=== PATIENT | male | born 1960 | race Caucasian/White ===

== ENCOUNTER 2016-05-21 02:22 | Emergency (ER) | payer MEDICAID ==
[~2016-05-21] VITALS: Ht 172.7 cm; Wt 77.3 kg
[2016-05-21 03:52] VITALS: BP 157/74
[2016-05-21] MEDS ORDERED: HYDROmorphone 2 MG/ML SYRINGE IM ONE (04:15)
[2016-05-21] MEDS ORDERED: ONDANSETRON HCL 4 MG/2 ML VIAL IM ONE (04:15)
== END 2016-05-21 04:35 | disposition home or self-care (01) ==
LOC: EMS 02:25
DX: T87.9 Unspecified complications of amputation stump (principal); I10 Essential (primary) hypertension; E11.9 Type 2 diabetes mellitus without complications; F17.210 Nicotine dependence, cigarettes, uncomplicated; F11.90 Opioid use, unspecified, uncomplicated
CPT/HCPCS: 96372; 99284; J1170; J2405

== ENCOUNTER 2016-05-21 08:37 | Emergency (ER) | payer MEDICAID ==
[~2016-05-21] VITALS: Ht 172.7 cm; Wt 81.8 kg
[2016-05-21 09:10] VITALS: BP 114/73
[2016-05-21 09:11] LABS: GLUCOSE,POINT OF CARE 144 MG/DL (70-110)
== END 2016-05-21 09:49 | disposition home or self-care (01) ==
LOC: EMS 08:40
DX: Z76.5 Malingerer [conscious simulation] (principal); R07.9 Chest pain, unspecified
CPT/HCPCS: 82962; 93005; 99283

== ENCOUNTER 2016-12-29 14:20 | Emergency (ER) | payer OTHER ==
[~2016-12-29] VITALS: Ht 172.7 cm; Wt 88.6 kg
[~2016-12-29 14:20] MED LIST: ALPR0.5T8 PO; ASPI-1093 PO; DSS100 PO; DULO60CA44 PO; FERR-89 PO; GLIM2 PO; METF500T4 PO; METO25 PO; OXYC10IR PO
[2016-12-29] MEDS ORDERED: ONDANSETRON HCL 4 MG/2 ML VIAL IVP ONE ×2 (14:45→21:30)
[2016-12-29 14:48] LABS: GLUCOSE,POINT OF CARE 267 MG/DL (70-110)
[2016-12-29] MEDS ORDERED: HYDROCODONE/ACETAMINOPHEN 5-325 MG TABLET PO ONE ×2 (15:00→16:30)
[2016-12-29] MEDS ORDERED: DSS100 PO (15:02)
[2016-12-29 15:15] LABS: BASOPHILS % (AUTO) 0.2 % (0.0-2.0); EOSINOPHILS % (AUTO) 1.5 % (1.0-6.0); HEMATOCRIT 28.8 % (41-53); HEMOGLOBIN 9.7 g/dL (13.5-17.5); LYMPHOCYTES # (AUTO) 4.2 K/uL (1.0-4.8); LYMPHOCYTES % (AUTO) 29.5 % (22.0-44.0); MEAN CORPUSCULAR HEMOGLOBIN 28.7 pg (26.0-34.0); MEAN CORPUSCULAR HGB CONC 33.6 G/dL (31.0-37.0); MEAN CORPUSCULAR VOLUME 85 fL (80-100); MONOCYTES # (AUTO) 1.1 K/uL (0.1-1.0); NEUTROPHILS # (AUTO) 8.7 K/uL (1.8-7.7); NEUTROPHILS % (AUTO) 60.8 % (40.0-70.0); PLATELET COUNT (AUTO) 444 K/uL (150-450); RED BLOOD CELL COUNT(AUTO) 3.37 MIL/uL (4.50-5.90); RED CELL DISTRIBUTION WIDTH 16.1 % (11.5-14.5); WHITE BLOOD COUNT (AUTO) 14.3 K/uL (4.5-11.0)
[2016-12-29 15:24] LABS: ANION GAP 12 mmol/L (8-16); CALCIUM, TOTAL 8.8 mg/dL (8.8-10.5); CARBON DIOXIDE 19 mmol/L (22-29); CHLORIDE 99 mmol/L (98-107); CREATININE 0.94 mg/dL (0.60-1.30); GLOMERULAR FILTR. RATE CALC > 60 mL/min (>60); POTASSIUM 4.4 mmol/L (3.5-5.1); SODIUM SERUM 130 mmol/L (136-145); UREA NITROGEN, BLOOD 15 mg/dL (7-18)
[2016-12-29 15:31] LABS: ALANINE AMINOTRANSFERASE 19 U/L (12-78); ALBUMIN 3.1 g/dL (3.4-5.0); ASPARTATE AMINOTRANSFERASE 14 U/L (15-37); BILIRUBIN,TOTAL 0.2 mg/dL (0.1-1.0); TOTAL PROTEIN, SERUM 6.7 g/dL (6.4-8.2)
[2016-12-29 16:15] LABS: APPEARANCE,URINE CLEAR (CLEAR); GLUCOSE, URINE (UA) >=1000 mg/dL (NEGATIVE); KETONES,URINE NEGATIVE (NEGATIVE); LEUKOCYTE ESTERASE ,URINE NEGATIVE (NEGATIVE); OCCULT BLOOD,URINE NEGATIVE (NEGATIVE); PH,URINE 6.5 (5.0-8.0); PROTEIN,URINE NEGATIVE (NEGATIVE)
[2016-12-29 16:25] LABS: RBC,URINE None Seen /HPF (0-2); WBC,URINE 0-2 /HPF (0-5)
[2016-12-29] MEDS ORDERED: GADOBUTROL 1 MMOL/ML 10 ML VIAL IVP ONE (19:06)
[2016-12-29] MEDS ORDERED: LORazepam 2 MG/ML VIAL IVP ONE (19:30)
[2016-12-29] MEDS ORDERED: MORPHINE SULFATE 4 MG/ML SYRINGE IVP ONE (22:30)
[2016-12-29 23:23] VITALS: BP 117/64
== END 2016-12-30 00:15 | disposition home or self-care (01) ==
LOC: EMS 14:23
DX: R53.1 Weakness (principal); M51.36 Other intervertebral disc degeneration, lumbar region; M48.06 Spinal stenosis, lumbar region; E11.9 Type 2 diabetes mellitus without complications; I10 Essential (primary) hypertension; R06.02 Shortness of breath; F17.200 Nicotine dependence, unspecified, uncomplicated; F15.10 Other stimulant abuse, uncomplicated; F11.10 Opioid abuse, uncomplicated; Z79.82 Long term (current) use of aspirin; Z82.49 Family history of ischemic heart disease and other diseases of the circulatory system; Z89.511 Acquired absence of right leg below knee; Z79.899 Other long term (current) drug therapy
CPT/HCPCS: 36415; 71010; 72100; 72158; 80053; 80178; 80307; 81001; 82962; 83690; 83880; 84484; 85025; 93005; 96374; 96375; 96376; 99285; A9585; G0480; J2060; J2270; J2405

== ENCOUNTER 2016-12-31 10:24 | Inpatient (IN) | payer OTHER ==
[~2016-12-31] VITALS: Ht 172.7 cm; Wt 82.3 kg
[~2016-12-31 10:24] MED LIST changes: -ASPI-1093 PO; +ASPI-1182 PO; +VANCOMYCIN HCL 1.5 GM in DEXTROSE 5%-WATER 250 ML IV SCH
[2016-12-31] MEDS ORDERED: 0.9% SODIUM CHLORIDE 10 ML SYRINGE IVP PRN ×2 (11:30→14:30)
[2016-12-31] MEDS ORDERED: PIPERACILLIN/TAZO 3.375 GM/D5W 50 ML IV ONE (11:45)
[2016-12-31] MEDS ORDERED: HYDROmorphone 2 MG/ML SYRINGE IVP ONE (11:45)
[2016-12-31] MEDS ORDERED: ONDANSETRON HCL 4 MG/2 ML VIAL IVP ONE (11:45)
[2016-12-31] MEDS ORDERED: VANCOMYCIN HCL 1 GM/D5% WATER 200 ML IV ONE ×2 (11:45→18:00)
[2016-12-31 12:10] LABS: APPEARANCE,URINE CLEAR (CLEAR); GLUCOSE, URINE (UA) >=1000 mg/dL (NEGATIVE); KETONES,URINE NEGATIVE (NEGATIVE); LEUKOCYTE ESTERASE ,URINE NEGATIVE (NEGATIVE); OCCULT BLOOD,URINE NEGATIVE (NEGATIVE); PROTEIN,URINE NEGATIVE (NEGATIVE)
[2016-12-31 12:11] LABS: ADD UA MICROSCOPIC YES
[2016-12-31 12:28] LABS: RBC,URINE 0-2 /HPF (0-2); SQUAMOUS EPITHELIAL CELL,UR Few /LPF (None Seen); WBC,URINE None Seen /HPF (0-5)
[2016-12-31 12:39] LABS: BASOPHILS % (AUTO) 0.5 % (0.0-2.0); HEMOGLOBIN 9.4 g/dL (13.5-17.5); LYMPHOCYTES # (AUTO) 3.1 K/uL (1.0-4.8); LYMPHOCYTES % (AUTO) 29.3 % (22.0-44.0); MEAN CORPUSCULAR HGB CONC 33.6 G/dL (31.0-37.0); MEAN CORPUSCULAR VOLUME 86 fL (80-100); MONOCYTES # (AUTO) 0.9 K/uL (0.1-1.0); MONOCYTES % (AUTO) 8.1 % (2.0-9.0); NEUTROPHILS # (AUTO) 6.4 K/uL (1.8-7.7); NEUTROPHILS % (AUTO) 60.1 % (40.0-70.0); PLATELET COUNT (AUTO) 567 K/uL (150-450); RED BLOOD CELL COUNT(AUTO) 3.25 MIL/uL (4.50-5.90); RED CELL DISTRIBUTION WIDTH 16.3 % (11.5-14.5); WHITE BLOOD COUNT (AUTO) 10.7 K/uL (4.5-11.0)
[2016-12-31 12:50] LABS: ANION GAP 11 mmol/L (8-16); CALCIUM, TOTAL 8.8 mg/dL (8.8-10.5); CARBON DIOXIDE 22 mmol/L (22-29); CHLORIDE 99 mmol/L (98-107); CREATININE 1.04 mg/dL (0.60-1.30); GLOMERULAR FILTR. RATE CALC > 60 mL/min (>60); POTASSIUM 4.1 mmol/L (3.5-5.1); SODIUM SERUM 132 mmol/L (136-145); UREA NITROGEN, BLOOD 10 mg/dL (7-18)
[2016-12-31 12:52] LABS: INR 0.9 (0.9-1.1); PROTHROMBIN TIME 9.8 SEC (9.4-11.6)
[2016-12-31 12:57] LABS: ALBUMIN 3.2 g/dL (3.4-5.0); ASPARTATE AMINOTRANSFERASE 10 U/L (15-37); BILIRUBIN,TOTAL 0.2 mg/dL (0.1-1.0); TOTAL PROTEIN, SERUM 6.8 g/dL (6.4-8.2)
[2016-12-31 12:59] LABS: LACTIC ACID 1.9 mmol/L (0.4-2.0)
[2016-12-31 13:09] LABS: ALANINE AMINOTRANSFERASE 19 U/L (12-78)
[2016-12-31 13:42] LABS: PROCALCITONIN (PCT) < 0.05 ng/mL (<0.50)
[2016-12-31 13:50] LABS: ERYTHROCYTE SEDIMENTATION RATE 68 MM/HR (0-15)
[2016-12-31] MEDS ORDERED: ACETAMINOPHEN 325 MG TABLET PO PRN ×2 (14:30→15:00)
[2016-12-31] MEDS ORDERED: ONDANSETRON HCL 4 MG/2 ML VIAL IVP PRN (14:30)
[2016-12-31] MEDS ORDERED: BISACODYL 10 MG RECTAL RECTAL SUPPOSITORY PR PRN (15:00)
[2016-12-31] MEDS ORDERED: MORPHINE SULFATE 2 MG/ML SYRINGE IVP PRN (15:00)
[2016-12-31 15:33] VITALS: BP 122/75
[2016-12-31] MEDS: HEPARIN SODIUM,PORCINE 5,000 UNITS/ML VIAL SQ SCH ×2 (16:34→23:13)
[2016-12-31] MEDS: HYDROmorphone 2 MG/ML SYRINGE IVP PRN ×2 (16:36→23:14)
[2016-12-31] MEDS: MetFORMIN HCL 500 MG TABLET PO SCH (18:01)
[2016-12-31] MEDS: OxyCODONE HCL 10 MG IR TABLET PO PRN (19:55)
[2016-12-31] MEDS: FERROUS SULFATE 325 MG EC TABLET PO SCH (19:55)
[2016-12-31] MEDS: DOCUSATE SODIUM 100 MG CAPSULE PO SCH (19:56)
[2016-12-31 20:18] VITALS: BP 131/70
[2016-12-31] MEDS: METOPROLOL TARTRATE 25 MG TABLET PO SCH (21:04)
[2016-12-31] MEDS: HYPROMELLOSE 0.5% 15 ML OPHTHALMIC SOLUTION OU SCH (23:35)
[2016-12-31 23:44] VITALS: BP 102/64
[2017-01-01] MEDS ORDERED: VANCOMYCIN HCL 1 GM/D5% WATER 200 ML IV ONE
[2017-01-01 00:23] LABS: GLUCOSE COMMENT 1 Received Meds; GLUCOSE,POINT OF CARE 190 MG/DL (70-110)
[2017-01-01] MEDS: ZOLPIDEM TARTRATE 5 MG TABLET PO PRN (01:17)
[2017-01-01 05:19] VITALS: BP 116/60
[2017-01-01] MEDS: HYDROmorphone 2 MG/ML SYRINGE IVP PRN ×3 (06:14→19:23)
[2017-01-01 06:24] LABS: BASOPHILS % (AUTO) 0.4 % (0.0-2.0); EOSINOPHILS % (AUTO) 1.9 % (1.0-6.0); HEMATOCRIT 25.4 % (41-53); HEMOGLOBIN 8.5 g/dL (13.5-17.5); LYMPHOCYTES # (AUTO) 4.7 K/uL (1.0-4.8); LYMPHOCYTES % (AUTO) 36.3 % (22.0-44.0); MEAN CORPUSCULAR HEMOGLOBIN 29.1 pg (26.0-34.0); MEAN CORPUSCULAR HGB CONC 33.6 G/dL (31.0-37.0); MEAN CORPUSCULAR VOLUME 87 fL (80-100); MONOCYTES # (AUTO) 1.1 K/uL (0.1-1.0); MONOCYTES % (AUTO) 8.6 % (2.0-9.0); NEUTROPHILS # (AUTO) 6.9 K/uL (1.8-7.7); NEUTROPHILS % (AUTO) 52.8 % (40.0-70.0); PLATELET COUNT (AUTO) 552 K/uL (150-450); RED BLOOD CELL COUNT(AUTO) 2.93 MIL/uL (4.50-5.90); RED CELL DISTRIBUTION WIDTH 15.7 % (11.5-14.5)
[2017-01-01 07:28] LABS: ALANINE AMINOTRANSFERASE 17 U/L (12-78); ALBUMIN 2.7 g/dL (3.4-5.0); ANION GAP 10 mmol/L (8-16); ASPARTATE AMINOTRANSFERASE 10 U/L (15-37); BILIRUBIN,TOTAL 0.1 mg/dL (0.1-1.0); CALCIUM, TOTAL 8.2 mg/dL (8.8-10.5); CARBON DIOXIDE 20 mmol/L (22-29); CHLORIDE 101 mmol/L (98-107); CREATININE 0.86 mg/dL (0.60-1.30); GLOMERULAR FILTR. RATE CALC > 60 mL/min (>60); SODIUM SERUM 131 mmol/L (136-145); UREA NITROGEN, BLOOD 9 mg/dL (7-18)
[2017-01-01 07:32] VITALS: BP 105/57
[2017-01-01] MEDS ORDERED: VANCOMYCIN HCL 1.5 GM in DEXTROSE 5%-WATER 250 ML IV SCH (08:00)
[2017-01-01] MEDS: HEPARIN SODIUM,PORCINE 5,000 UNITS/ML VIAL SQ SCH ×3 (08:26→23:48)
[2017-01-01] MEDS: PANTOPRAZOLE SODIUM 40 MG DR TABLET PO SCH (08:27)
[2017-01-01] MEDS: GLIMEPIRIDE 2 MG TABLET PO SCH (08:27)
[2017-01-01] MEDS: DULoxetine HCL 60 MG CAPSULE PO SCH (08:27)
[2017-01-01] MEDS: DOCUSATE SODIUM 100 MG CAPSULE PO SCH ×2 (08:27→19:23)
[2017-01-01] MEDS: METOPROLOL TARTRATE 25 MG TABLET PO SCH ×2 (08:27→19:23)
[2017-01-01] MEDS: ASPIRIN 81 MG EC TABLET PO SCH (08:27)
[2017-01-01] MEDS: FERROUS SULFATE 325 MG EC TABLET PO SCH ×2 (08:27→19:23)
[2017-01-01] MEDS: HYPROMELLOSE 0.5% 15 ML OPHTHALMIC SOLUTION OU SCH ×2 (08:27→19:23)
[2017-01-01] MEDS: MetFORMIN HCL 500 MG TABLET PO SCH ×2 (08:28→17:17)
[2017-01-01] MEDS: HYDROCODONE/ACETAMINOPHEN 5-325 MG TABLET PO PRN ×2 (08:33→17:16)
[2017-01-01 11:22] VITALS: BP 123/70
[2017-01-01] MEDS: OxyCODONE HCL 10 MG IR TABLET PO PRN ×2 (11:24→23:48)
[2017-01-01 15:25] VITALS: BP 122/72
[2017-01-01 19:15] VITALS: BP 127/76
[2017-01-01] MEDS: ONDANSETRON HCL 4 MG/2 ML VIAL IVP PRN (20:11)
[2017-01-01] MEDS: ALPRAZolam 0.5 MG TABLET PO PRN (21:20)
[2017-01-01 23:36] VITALS: BP 110/75
[2017-01-02] VITALS (7 sets, daily range): BP systolic 95–125; BP diastolic 52–76
[2017-01-02] MEDS: HYDROmorphone 2 MG/ML SYRINGE IVP PRN ×4 (01:14→19:32)
[2017-01-02] MEDS: ZOLPIDEM TARTRATE 5 MG TABLET PO PRN (01:56)
[2017-01-02] MEDS: HEPARIN SODIUM,PORCINE 5,000 UNITS/ML VIAL SQ SCH ×2 (08:00→15:59)
[2017-01-02] MEDS: ALPRAZolam 0.5 MG TABLET PO PRN ×2 (10:55→22:14)
[2017-01-02] MEDS ORDERED: FentaNYL CITRATE-PF 100 MCG/2 ML VIAL ONE (11:40)
[2017-01-02] MEDS ORDERED: MIDAZOLAM HCL 2 MG/2 ML VIAL ONE (11:40)
[2017-01-02] MEDS ORDERED: MIDAZOLAM HCL 2 MG/2 ML VIAL IVP ONE (12:32)
[2017-01-02] MEDS ORDERED: FentaNYL CITRATE-PF 100 MCG/2 ML VIAL IVP ONE (12:36)
[2017-01-02] MEDS: MetFORMIN HCL 500 MG TABLET PO SCH ×2 (13:40→17:56)
[2017-01-02] MEDS: METOPROLOL TARTRATE 25 MG TABLET PO SCH ×2 (13:40→19:32)
[2017-01-02] MEDS: PANTOPRAZOLE SODIUM 40 MG DR TABLET PO SCH (13:40)
[2017-01-02] MEDS: GLIMEPIRIDE 2 MG TABLET PO SCH (13:40)
[2017-01-02] MEDS: HYPROMELLOSE 0.5% 15 ML OPHTHALMIC SOLUTION OU SCH ×2 (13:41→19:32)
[2017-01-02] MEDS: DOCUSATE SODIUM 100 MG CAPSULE PO SCH ×2 (13:41→19:32)
[2017-01-02] MEDS: ASPIRIN 81 MG EC TABLET PO SCH (13:41)
[2017-01-02] MEDS: DULoxetine HCL 60 MG CAPSULE PO SCH (13:41)
[2017-01-02] MEDS: FERROUS SULFATE 325 MG EC TABLET PO SCH ×2 (13:41→19:32)
[2017-01-02] MEDS: HYDROCODONE/ACETAMINOPHEN 5-325 MG TABLET PO PRN (16:07)
[2017-01-03] MEDS: OxyCODONE HCL 10 MG IR TABLET PO PRN (00:09)
[2017-01-03] MEDS: HEPARIN SODIUM,PORCINE 5,000 UNITS/ML VIAL SQ SCH ×4 (01:46→23:15)
[2017-01-03] MEDS: HYDROmorphone 2 MG/ML SYRINGE IVP PRN ×4 (01:46→21:06)
[2017-01-03] MEDS: ZOLPIDEM TARTRATE 5 MG TABLET PO PRN (02:33)
[2017-01-03 05:07] VITALS: BP 141/74
[2017-01-03 08:03] VITALS: BP 123/71
[2017-01-03] MEDS: PANTOPRAZOLE SODIUM 40 MG DR TABLET PO SCH (08:48)
[2017-01-03] MEDS: FERROUS SULFATE 325 MG EC TABLET PO SCH ×2 (08:49→20:05)
[2017-01-03] MEDS: GLIMEPIRIDE 2 MG TABLET PO SCH (08:49)
[2017-01-03] MEDS: DULoxetine HCL 60 MG CAPSULE PO SCH (08:49)
[2017-01-03] MEDS: METOPROLOL TARTRATE 25 MG TABLET PO SCH ×2 (08:49→20:05)
[2017-01-03] MEDS: MetFORMIN HCL 500 MG TABLET PO SCH ×2 (08:49→17:49)
[2017-01-03] MEDS: DOCUSATE SODIUM 100 MG CAPSULE PO SCH ×2 (08:49→20:05)
[2017-01-03] MEDS: ASPIRIN 81 MG EC TABLET PO SCH (08:49)
[2017-01-03] MEDS: HYPROMELLOSE 0.5% 15 ML OPHTHALMIC SOLUTION OU SCH ×2 (08:50→20:05)
[2017-01-03 12:00] VITALS: BP 112/51
[2017-01-03 15:58] VITALS: BP 133/70
[2017-01-03 19:42] LABS: GLUCOSE COMMENT 1 Received Meds; GLUCOSE,POINT OF CARE 147 MG/DL (70-110)
[2017-01-03 19:44] VITALS: BP 150/81
[2017-01-03] MEDS: ALPRAZolam 0.5 MG TABLET PO PRN (20:19)
[2017-01-03 23:45] VITALS: BP 111/61
[2017-01-04] MEDS: ZOLPIDEM TARTRATE 5 MG TABLET PO PRN (00:31)
[2017-01-04] MEDS: HYDROmorphone 2 MG/ML SYRINGE IVP PRN ×4 (03:07→22:00)
[2017-01-04 03:45] VITALS: BP 112/59
[2017-01-04 07:28] VITALS: BP 130/66
[2017-01-04] MEDS: MetFORMIN HCL 500 MG TABLET PO SCH ×2 (08:00→18:22)
[2017-01-04] MEDS: DULoxetine HCL 60 MG CAPSULE PO SCH (08:00)
[2017-01-04] MEDS: FERROUS SULFATE 325 MG EC TABLET PO SCH ×2 (08:00→20:02)
[2017-01-04] MEDS: GLIMEPIRIDE 2 MG TABLET PO SCH (08:00)
[2017-01-04] MEDS: PANTOPRAZOLE SODIUM 40 MG DR TABLET PO SCH (08:00)
[2017-01-04] MEDS: ASPIRIN 81 MG EC TABLET PO SCH (08:00)
[2017-01-04] MEDS: HEPARIN SODIUM,PORCINE 5,000 UNITS/ML VIAL SQ SCH ×3 (08:00→23:52)
[2017-01-04] MEDS: DOCUSATE SODIUM 100 MG CAPSULE PO SCH ×2 (08:01→20:02)
[2017-01-04] MEDS: HYPROMELLOSE 0.5% 15 ML OPHTHALMIC SOLUTION OU SCH ×2 (08:01→20:03)
[2017-01-04] MEDS: MAGNESIUM HYDROXIDE SUSPENSION 30 ML UDCUP PO PRN ×2 (08:17→09:07)
[2017-01-04] MEDS: METOPROLOL TARTRATE 25 MG TABLET PO SCH ×2 (09:07→20:02)
[2017-01-04 11:04] VITALS: BP 139/85
[2017-01-04] MEDS: ALPRAZolam 0.5 MG TABLET PO PRN (14:34)
[2017-01-04 15:16] VITALS: BP 154/87
[2017-01-04 19:45] VITALS: BP 120/78
[2017-01-04] MEDS: OxyCODONE HCL 10 MG IR TABLET PO PRN (20:02)
[2017-01-05] VITALS (7 sets, daily range): BP systolic 93–115; BP diastolic 51–72
[2017-01-05] MEDS: ZOLPIDEM TARTRATE 5 MG TABLET PO PRN (01:25)
[2017-01-05] MEDS: HYDROmorphone 2 MG/ML SYRINGE IVP PRN ×4 (04:31→23:29)
[2017-01-05] MEDS: PANTOPRAZOLE SODIUM 40 MG DR TABLET PO SCH (08:54)
[2017-01-05] MEDS: DULoxetine HCL 60 MG CAPSULE PO SCH (08:54)
[2017-01-05] MEDS: ASPIRIN 81 MG EC TABLET PO SCH (08:54)
[2017-01-05] MEDS: HEPARIN SODIUM,PORCINE 5,000 UNITS/ML VIAL SQ SCH ×3 (08:54→23:29)
[2017-01-05] MEDS: GLIMEPIRIDE 2 MG TABLET PO SCH (08:54)
[2017-01-05] MEDS: MetFORMIN HCL 500 MG TABLET PO SCH ×2 (08:54→17:26)
[2017-01-05] MEDS: DOCUSATE SODIUM 100 MG CAPSULE PO SCH ×2 (08:54→20:47)
[2017-01-05] MEDS: FERROUS SULFATE 325 MG EC TABLET PO SCH ×2 (08:54→20:47)
[2017-01-05] MEDS: METOPROLOL TARTRATE 25 MG TABLET PO SCH ×2 (08:54→20:47)
[2017-01-05] MEDS: HYPROMELLOSE 0.5% 15 ML OPHTHALMIC SOLUTION OU SCH ×2 (08:59→21:23)
[2017-01-05] MEDS: ONDANSETRON HCL 4 MG/2 ML VIAL IVP PRN ×3 (09:39→22:11)
[2017-01-05] MEDS: OxyCODONE HCL 10 MG IR TABLET PO PRN ×2 (11:01→11:02)
[2017-01-05] MEDS: ALPRAZolam 0.5 MG TABLET PO PRN (20:47)
[2017-01-06] MEDS: ZOLPIDEM TARTRATE 5 MG TABLET PO PRN (00:50)
[2017-01-06 05:21] VITALS: BP 111/70
[2017-01-06] MEDS: HYDROmorphone 2 MG/ML SYRINGE IVP PRN ×4 (05:36→21:21)
[2017-01-06 06:06] LABS: INR 0.9 (0.9-1.1); PROTHROMBIN TIME 9.7 SEC (9.4-11.6)
[2017-01-06 07:26] VITALS: BP 112/64
[2017-01-06] MEDS ORDERED: MIDAZOLAM HCL 2 MG/2 ML VIAL IVP ONE (07:34)
[2017-01-06] MEDS ORDERED: FentaNYL CITRATE-PF 100 MCG/2 ML VIAL IVP ONE (07:34)
[2017-01-06] MEDS: GLIMEPIRIDE 2 MG TABLET PO SCH (08:00)
[2017-01-06] MEDS: MetFORMIN HCL 500 MG TABLET PO SCH ×2 (08:22→17:29)
[2017-01-06] MEDS: PANTOPRAZOLE SODIUM 40 MG DR TABLET PO SCH (08:22)
[2017-01-06] MEDS: HEPARIN SODIUM,PORCINE 5,000 UNITS/ML VIAL SQ SCH ×3 (08:22→23:57)
[2017-01-06] MEDS: METOPROLOL TARTRATE 25 MG TABLET PO SCH ×2 (08:22→20:01)
[2017-01-06] MEDS: DOCUSATE SODIUM 100 MG CAPSULE PO SCH ×2 (08:22→20:01)
[2017-01-06] MEDS: DULoxetine HCL 60 MG CAPSULE PO SCH (08:22)
[2017-01-06] MEDS: ASPIRIN 81 MG EC TABLET PO SCH (08:23)
[2017-01-06] MEDS: FERROUS SULFATE 325 MG EC TABLET PO SCH ×2 (08:23→20:01)
[2017-01-06] MEDS: HYPROMELLOSE 0.5% 15 ML OPHTHALMIC SOLUTION OU SCH ×2 (08:27→21:51)
[2017-01-06] MEDS ORDERED: FentaNYL CITRATE-PF 100 MCG/2 ML VIAL ONE (08:53)
[2017-01-06] MEDS ORDERED: MIDAZOLAM HCL 2 MG/2 ML VIAL ONE (08:53)
[2017-01-06 11:21] VITALS: BP 119/70
[2017-01-06] MEDS ORDERED: SODIUM CHLORIDE 0.9% 1,000 ML IV ONE (12:54)
[2017-01-06] MEDS ORDERED: FentaNYL CITRATE-PF 100 MCG/2 ML VIAL IVP PRN (13:00)
[2017-01-06] MEDS ORDERED: HYDROmorphone 2 MG/ML SYRINGE IVP PRN (13:00)
[2017-01-06 15:45] VITALS: BP 124/65
[2017-01-06] MEDS: HYDROCODONE/ACETAMINOPHEN 5-325 MG TABLET PO PRN (17:52)
[2017-01-06] MEDS: ALPRAZolam 0.5 MG TABLET PO PRN (20:01)
[2017-01-06 20:20] VITALS: BP 129/74
[2017-01-06] MEDS: OxyCODONE HCL 10 MG IR TABLET PO PRN (20:30)
[2017-01-06] MEDS ORDERED: EPHEDrine SULFATE 50 MG/ML VIAL IM ONE (23:22)
[2017-01-06] MEDS ORDERED: PROPOFOL 1% 20 ML VIAL IVP ONE (23:22)
[2017-01-06] MEDS ORDERED: SUCCINYLCHOLINE CHLORIDE 20 MG/ML 10 ML VIAL IVP ONE (23:22)
[2017-01-06] MEDS ORDERED: ROCURONIUM BROMIDE 10 MG/ML 5 ML VIAL IVP ONE (23:22)
[2017-01-06] MEDS ORDERED: LIDOCAINE HCL/PF 2% 5 ML VIAL IM ONE (23:22)
[2017-01-07 00:12] VITALS: BP 106/65
[2017-01-07] MEDS: ZOLPIDEM TARTRATE 5 MG TABLET PO PRN ×2 (02:30→23:50)
[2017-01-07] MEDS: HYDROmorphone 2 MG/ML SYRINGE IVP PRN ×4 (04:12→22:02)
[2017-01-07 04:34] VITALS: BP 109/66
[2017-01-07 07:30] VITALS: BP 121/65
[2017-01-07] MEDS: PANTOPRAZOLE SODIUM 40 MG DR TABLET PO SCH (08:01)
[2017-01-07] MEDS: GLIMEPIRIDE 2 MG TABLET PO SCH (08:01)
[2017-01-07] MEDS: FERROUS SULFATE 325 MG EC TABLET PO SCH ×2 (08:02→20:17)
[2017-01-07] MEDS: MetFORMIN HCL 500 MG TABLET PO SCH ×2 (08:02→17:49)
[2017-01-07] MEDS: ASPIRIN 81 MG EC TABLET PO SCH (08:02)
[2017-01-07] MEDS: DOCUSATE SODIUM 100 MG CAPSULE PO SCH ×2 (08:02→20:17)
[2017-01-07] MEDS: HYDROCODONE/ACETAMINOPHEN 5-325 MG TABLET PO PRN ×2 (08:02→17:49)
[2017-01-07] MEDS: HEPARIN SODIUM,PORCINE 5,000 UNITS/ML VIAL SQ SCH ×3 (08:03→23:47)
[2017-01-07] MEDS: HYPROMELLOSE 0.5% 15 ML OPHTHALMIC SOLUTION OU SCH ×2 (08:05→20:18)
[2017-01-07] MEDS: DULoxetine HCL 60 MG CAPSULE PO SCH (08:06)
[2017-01-07 11:40] VITALS: BP 130/72
[2017-01-07] MEDS: METOPROLOL TARTRATE 25 MG TABLET PO SCH ×2 (12:34→20:17)
[2017-01-07 15:30] VITALS: BP 133/71
[2017-01-07] MEDS: ALPRAZolam 0.5 MG TABLET PO PRN (15:36)
[2017-01-07 19:22] LABS: GLUCOSE,POINT OF CARE 116 MG/DL (70-110)
[2017-01-07 20:08] VITALS: BP 115/67
[2017-01-07] MEDS: OxyCODONE HCL 10 MG IR TABLET PO PRN (20:40)
[2017-01-08] VITALS (7 sets, daily range): BP systolic 100–127; BP diastolic 56–86
[2017-01-08] MEDS: HYDROmorphone 2 MG/ML SYRINGE IVP PRN ×4 (03:59→22:52)
[2017-01-08] MEDS: ASPIRIN 81 MG EC TABLET PO SCH (08:56)
[2017-01-08] MEDS: PANTOPRAZOLE SODIUM 40 MG DR TABLET PO SCH (08:56)
[2017-01-08] MEDS: METOPROLOL TARTRATE 25 MG TABLET PO SCH ×2 (08:56→19:46)
[2017-01-08] MEDS: DOCUSATE SODIUM 100 MG CAPSULE PO SCH ×2 (08:56→19:49)
[2017-01-08] MEDS: FERROUS SULFATE 325 MG EC TABLET PO SCH ×2 (08:57→19:46)
[2017-01-08] MEDS: HEPARIN SODIUM,PORCINE 5,000 UNITS/ML VIAL SQ SCH ×3 (08:57→23:58)
[2017-01-08] MEDS: MetFORMIN HCL 500 MG TABLET PO SCH ×2 (08:57→17:40)
[2017-01-08] MEDS: DULoxetine HCL 60 MG CAPSULE PO SCH (08:57)
[2017-01-08] MEDS: OxyCODONE HCL 10 MG IR TABLET PO PRN ×2 (08:58→15:06)
[2017-01-08] MEDS: GLIMEPIRIDE 2 MG TABLET PO SCH (08:58)
[2017-01-08] MEDS: HYPROMELLOSE 0.5% 15 ML OPHTHALMIC SOLUTION OU SCH ×2 (09:16→23:58)
[2017-01-09] MEDS ORDERED: CefTRIAXone SODIUM 2 GM in DEXTROSE 5%-WATER 50 ML IV SCH ×2 (00:45→08:00)
[2017-01-09] MEDS: ZOLPIDEM TARTRATE 5 MG TABLET PO PRN ×2 (01:17→23:23)
[2017-01-09 04:39] VITALS: BP 134/75
[2017-01-09] MEDS: HYDROmorphone 2 MG/ML SYRINGE IVP PRN ×4 (04:46→23:03)
[2017-01-09 06:03] LABS: GLUCOSE COMMENT 1 Juice/Food/D50 Given; GLUCOSE,POINT OF CARE 113 MG/DL (70-110)
[2017-01-09 06:06] LABS: BASOPHILS # (AUTO) 0.04 K/uL (0.00-0.20); BASOPHILS % (AUTO) 0.5 % (0.0-2.0); EOSINOPHILS # (AUTO) 0.16 K/uL (0.00-0.70); HEMATOCRIT 28.3 % (41-53); HEMOGLOBIN 9.5 g/dL (13.5-17.5); LYMPHOCYTES # (AUTO) 3.2 K/uL (1.0-4.8); LYMPHOCYTES % (AUTO) 39.9 % (22.0-44.0); MEAN CORPUSCULAR HEMOGLOBIN 28.6 pg (26.0-34.0); MEAN CORPUSCULAR HGB CONC 33.6 G/dL (31.0-37.0); MEAN CORPUSCULAR VOLUME 85 fL (80-100); MONOCYTES # (AUTO) 0.6 K/uL (0.1-1.0); NEUTROPHILS % (AUTO) 50.6 % (40.0-70.0); PLATELET COUNT (AUTO) 578 K/uL (150-450); RED BLOOD CELL COUNT(AUTO) 3.33 MIL/uL (4.50-5.90); RED CELL DISTRIBUTION WIDTH 15.6 % (11.5-14.5); WHITE BLOOD COUNT (AUTO) 7.9 K/uL (4.5-11.0)
[2017-01-09 06:17] LABS: ANION GAP 8 mmol/L (8-16); CALCIUM, TOTAL 8.6 mg/dL (8.8-10.5); CARBON DIOXIDE 25 mmol/L (22-29); CHLORIDE 102 mmol/L (98-107); GLOMERULAR FILTR. RATE CALC > 60 mL/min (>60); SODIUM SERUM 135 mmol/L (136-145); UREA NITROGEN, BLOOD 12 mg/dL (7-18)
[2017-01-09 07:43] VITALS: BP 134/79
[2017-01-09] MEDS ORDERED: VANCOMYCIN HCL 1.5 GM in DEXTROSE 5%-WATER 250 ML IV ONE (08:00)
[2017-01-09 08:10] LABS: ERYTHROCYTE SEDIMENTATION RATE 61 MM/HR (0-15)
[2017-01-09] MEDS: DULoxetine HCL 60 MG CAPSULE PO SCH (08:15)
[2017-01-09] MEDS: DOCUSATE SODIUM 100 MG CAPSULE PO SCH ×2 (08:15→20:05)
[2017-01-09] MEDS: PANTOPRAZOLE SODIUM 40 MG DR TABLET PO SCH (08:16)
[2017-01-09] MEDS: MetFORMIN HCL 500 MG TABLET PO SCH ×2 (08:16→17:47)
[2017-01-09] MEDS: METOPROLOL TARTRATE 25 MG TABLET PO SCH ×2 (08:16→20:05)
[2017-01-09] MEDS: HEPARIN SODIUM,PORCINE 5,000 UNITS/ML VIAL SQ SCH ×3 (08:16→23:23)
[2017-01-09] MEDS: FERROUS SULFATE 325 MG EC TABLET PO SCH ×2 (08:16→20:05)
[2017-01-09] MEDS: ASPIRIN 81 MG EC TABLET PO SCH (08:16)
[2017-01-09] MEDS: CefTRIAXone SODIUM 2 GM in DEXTROSE 5%-WATER 50 ML IV SCH (08:16)
[2017-01-09] MEDS: GLIMEPIRIDE 2 MG TABLET PO SCH (08:16)
[2017-01-09] MEDS: HYPROMELLOSE 0.5% 15 ML OPHTHALMIC SOLUTION OU SCH ×2 (08:17→21:13)
[2017-01-09] MEDS ORDERED: SODIUM CHLORIDE 0.9% 500 ML IV ONE (08:28)
[2017-01-09] MEDS: ONDANSETRON HCL 4 MG/2 ML VIAL IVP PRN (10:33)
[2017-01-09 11:33] VITALS: BP 140/97
[2017-01-09] MEDS: OxyCODONE HCL 10 MG IR TABLET PO PRN ×2 (14:59→20:06)
[2017-01-09] MEDS ORDERED: VANCOMYCIN HCL 1 GM/D5% WATER 200 ML IV ONE (18:00)
[2017-01-09 19:44] VITALS: BP 116/69
[2017-01-09 19:57] LABS: GLUCOSE,POINT OF CARE 92 MG/DL (70-110)
[2017-01-09 21:23] LABS: GLUCOSE,POINT OF CARE 136 MG/DL (70-110)
[2017-01-09] MEDS: VANCOMYCIN HCL 1 GM/D5% WATER 200 ML IV SCH (23:03)
[2017-01-09 23:19] VITALS: BP 92/60
[2017-01-10] MEDS: OxyCODONE HCL 10 MG IR TABLET PO PRN ×2 (03:40→16:10)
[2017-01-10] MEDS: HYDROmorphone 2 MG/ML SYRINGE IVP PRN ×3 (05:04→18:26)
[2017-01-10 05:43] VITALS: BP 96/56
[2017-01-10 06:02] LABS: GLUCOSE,POINT OF CARE 111 MG/DL (70-110)
[2017-01-10 07:25] LABS: ANION GAP 8 mmol/L (8-16); CALCIUM, TOTAL 8.7 mg/dL (8.8-10.5); CARBON DIOXIDE 26 mmol/L (22-29); CHLORIDE 102 mmol/L (98-107); CREATININE 0.86 mg/dL (0.60-1.30); GLOMERULAR FILTR. RATE CALC > 60 mL/min (>60); SODIUM SERUM 136 mmol/L (136-145); UREA NITROGEN, BLOOD 11 mg/dL (7-18)
[2017-01-10 07:58] VITALS: BP 101/55
[2017-01-10] MEDS: HEPARIN SODIUM,PORCINE 5,000 UNITS/ML VIAL SQ SCH ×2 (08:07→16:11)
[2017-01-10] MEDS: MetFORMIN HCL 500 MG TABLET PO SCH ×2 (08:08→17:31)
[2017-01-10] MEDS: VANCOMYCIN HCL 1 GM/D5% WATER 200 ML IV SCH ×2 (08:08→16:10)
[2017-01-10] MEDS: HYDROCODONE/ACETAMINOPHEN 5-325 MG TABLET PO PRN ×2 (08:08→19:34)
[2017-01-10] MEDS: GLIMEPIRIDE 2 MG TABLET PO SCH (08:08)
[2017-01-10] MEDS ORDERED: SODIUM CHLORIDE 0.9% 250 ML IV ONE (09:47)
[2017-01-10] MEDS: CefTRIAXone SODIUM 2 GM in DEXTROSE 5%-WATER 50 ML IV SCH (09:53)
[2017-01-10] MEDS: METOPROLOL TARTRATE 25 MG TABLET PO SCH ×2 (09:53→20:30)
[2017-01-10] MEDS: ASPIRIN 81 MG EC TABLET PO SCH (09:53)
[2017-01-10] MEDS: PANTOPRAZOLE SODIUM 40 MG DR TABLET PO SCH (09:53)
[2017-01-10] MEDS: FERROUS SULFATE 325 MG EC TABLET PO SCH ×2 (09:53→20:30)
[2017-01-10] MEDS: DULoxetine HCL 60 MG CAPSULE PO SCH (09:53)
[2017-01-10] MEDS: HYPROMELLOSE 0.5% 15 ML OPHTHALMIC SOLUTION OU SCH ×2 (09:54→20:31)
[2017-01-10] MEDS: DOCUSATE SODIUM 100 MG CAPSULE PO SCH ×2 (09:54→20:30)
[2017-01-10 13:24] VITALS: BP 101/55
[2017-01-10 15:32] VITALS: BP 128/76
[2017-01-10] MEDS: ALPRAZolam 0.5 MG TABLET PO PRN (16:47)
[2017-01-10 19:35] VITALS: BP 124/69
[2017-01-11 00:05] VITALS: BP 116/78
[2017-01-11] MEDS: OxyCODONE HCL 10 MG IR TABLET PO PRN (00:15)
[2017-01-11] MEDS: VANCOMYCIN HCL 1 GM/D5% WATER 200 ML IV SCH ×3 (00:19→15:51)
[2017-01-11] MEDS: HYDROmorphone 2 MG/ML SYRINGE IVP PRN ×4 (00:19→12:22)
[2017-01-11] MEDS: HEPARIN SODIUM,PORCINE 5,000 UNITS/ML VIAL SQ SCH ×4 (00:20→15:51)
[2017-01-11] MEDS: ZOLPIDEM TARTRATE 5 MG TABLET PO PRN (00:51)
[2017-01-11 03:30] VITALS: BP 122/76
[2017-01-11] MEDS: HYDROCODONE/ACETAMINOPHEN 5-325 MG TABLET PO PRN ×2 (04:38→11:01)
[2017-01-11 07:22] LABS: ANION GAP 10 mmol/L (8-16); CALCIUM, TOTAL 8.7 mg/dL (8.8-10.5); CARBON DIOXIDE 24 mmol/L (22-29); CHLORIDE 103 mmol/L (98-107); CREATININE 0.73 mg/dL (0.60-1.30); GLOMERULAR FILTR. RATE CALC > 60 mL/min (>60); SODIUM SERUM 137 mmol/L (136-145); UREA NITROGEN, BLOOD 10 mg/dL (7-18)
[2017-01-11 07:48] VITALS: BP 123/75
[2017-01-11] MEDS ORDERED: HEPARIN SODIUM 1000 UNITS/NS 500 ML ONE (09:39)
[2017-01-11] MEDS ORDERED: CEFX1I IM (10:44)
[2017-01-11] MEDS ORDERED: HYPR15DR23 OU (10:48)
[2017-01-11] MEDS ORDERED: VANC1PLA9 IV (10:51)
[2017-01-11] MEDS ORDERED: ACET-784 PO (10:52)
[2017-01-11] MEDS: FERROUS SULFATE 325 MG EC TABLET PO SCH (10:54)
[2017-01-11] MEDS: GLIMEPIRIDE 2 MG TABLET PO SCH (10:54)
[2017-01-11] MEDS: DOCUSATE SODIUM 100 MG CAPSULE PO SCH (10:54)
[2017-01-11] MEDS: METOPROLOL TARTRATE 25 MG TABLET PO SCH (10:54)
[2017-01-11] MEDS: MetFORMIN HCL 500 MG TABLET PO SCH (10:55)
[2017-01-11] MEDS: HYPROMELLOSE 0.5% 15 ML OPHTHALMIC SOLUTION OU SCH (10:55)
[2017-01-11] MEDS: DULoxetine HCL 60 MG CAPSULE PO SCH (10:55)
[2017-01-11] MEDS: ASPIRIN 81 MG EC TABLET PO SCH (10:55)
[2017-01-11] MEDS: PANTOPRAZOLE SODIUM 40 MG DR TABLET PO SCH (10:57)
[2017-01-11 11:25] VITALS: BP 127/78
[2017-01-11] MEDS: CefTRIAXone SODIUM 2 GM in DEXTROSE 5%-WATER 50 ML IV SCH (12:21)
[2017-01-11 15:50] VITALS: BP 143/75
== END 2017-01-11 16:10 | DRG 420 ==
LOC: EMS 10:27 → 6N 13:44
PROVIDERS: ADMIT Internal Medicine; ATTEND Internal Medicine
PROC: 0QB03ZX Excision of Lumbar Vertebra, Percutaneous Approach, Diagnostic (ICD-10-PCS; principal; 2017-01-02)
PROC: 0QB03ZX Excision of Lumbar Vertebra, Percutaneous Approach, Diagnostic (ICD-10-PCS; 2017-01-06)
PROC: 02HV33Z Insertion of Infusion Device into Superior Vena Cava, Percutaneous Approach (ICD-10-PCS; 2017-01-11)
PROC: B548ZZA Ultrasonography of Superior Vena Cava, Guidance (ICD-10-PCS; 2017-01-11)
DX: E11.69 Type 2 diabetes mellitus with other specified complication (principal); D69.6 Thrombocytopenia, unspecified; M46.26 Osteomyelitis of vertebra, lumbar region; E87.1 Hypo-osmolality and hyponatremia; M46.46 Discitis, unspecified, lumbar region; M51.36 Other intervertebral disc degeneration, lumbar region; F31.9 Bipolar disorder, unspecified; F17.200 Nicotine dependence, unspecified, uncomplicated; I10 Essential (primary) hypertension; Z89.511 Acquired absence of right leg below knee; Z96.659 Presence of unspecified artificial knee joint; M54.5 Low back pain; R70.0 Elevated erythrocyte sedimentation rate; Z79.82 Long term (current) use of aspirin; Z79.899 Other long term (current) drug therapy
CPT/HCPCS: 36245; 36569; 76937; 77012; 82962; 83605; 84145; 85651; 86140; 87015; 87040; 87070; 87081; 87101; 87176; 87205; 88305; 88311; 96365; 96367; 96375; 97110; 97162; 97166; 97530; 97535; 99285; J0330; J0696; J1170; J1644; J2250; J2270; J2405; J2543; J2704; J3010; J3370; J3490; J7030; J7040; J7050; J7060